=== PATIENT | female | born 1975 ===

== ENCOUNTER 2017-11-03 10:10 | Emergency (ER) | payer BC ==
[2017-11-03 10:27] VITALS: BP 104/61
[2017-11-03] MEDS ORDERED: Ketorolac INJ* 60 MG/2 ML VIAL IM ONE (10:44)
--- NOTE | 2017-12-08 21:22 | UC ---
Hand/Wrist HPI - HPI Summary HPI Summary: 3 weeks of numbness and tingling in right hand and fingers---seen pcp rx a splint and NSAIDS but not much better-- - History Of Current Complaint Chief Complaint: UCUpperExtremity Stated Complaint: ARM PAIN Time Seen by Provider: 11/03/17 10:32 Hx Obtained From: Patient Hx Last Menstrual Period: November 2016 ?: No Onset/Duration: Gradual Onset, Lasting Weeks - 3, Still Present Severity Initially: Moderate Severity Currently: Moderate Character Of Pain: Aching, Throbbing Aggravating Factor(s): Movement Alleviating Factor(s): Nothing Associated Signs And Symptoms: Positive: Numbness/Tingling Related History: Dominant Hand Right - Allergies/Home Medications Allergies/Adverse Reactions: Allergies Allergy/AdvReac Type Severity Reaction Status Date / Time hydromorphone Allergy Intermediate vomittinng Verified 11/03/17 10:27 Home Medications: Home Medications Pantoprazole Sodium [Protonix] 40 mg PO DAILY 11/03/17 [History Confirmed ] Venlafaxine EXT RELEASE CAP* [Effexor Xr CAP*] 225 mg PO DAILY 11/03/17 [ History Confirmed 11/03/17] PMH/Surg Hx/FS Hx/Imm Hx Previously Healthy: No GI/ History: Gastroesophageal Reflux Psychological History: Depression - Surgical History Surgical History: None Surgery Procedure, Year, and Place: tubal ligation november 2016. D&C 2006. adenoids 1978 - Family History Known Family History: Positive: None - Social History Occupation: Employed Full-time Lives: With Family Alcohol Use: Rare Substance Use Type: None Smoking Status (MU): Former Smoker Length of Time of Smoking/Using Tobacco: 10 When Did the Patient Quit Smoking/Using Tobacco: 4years Review of Systems Constitutional: Negative Skin: Negative Eyes: Negative ENT: Negative Respiratory: Negative Cardiovascular: Negative Gastrointestinal: Negative Genitourinary: Negative Motor: Negative Neurovascular: Negative Musculoskeletal: Arthralgia, Other: - numbness and tinglingright hand Neurological: Negative Psychological: Negative Is Patient Immunocompromised?: No All Other Systems Reviewed And Are Negative: Yes Physical Exam Triage Information Reviewed: Yes Appearance: Well-Appearing, No Pain Distress, Well-Nourished Vital Signs: Initial Vital Signs Temp 98.1 F 11/03/17 10:21 Pulse 87 11/03/17 10:21 Resp 18 11/03/17 10:21 BP 104/61 11/03/17 10:21 Pulse Ox 100 11/03/17 10:21 Vital Signs Reviewed: Yes Eye Exam: Normal Eyes: Positive: Conjunctiva Clear ENT Exam: Normal ENT: Positive: Normal ENT inspection, Hearing grossly normal. Negative: Muffled voice, Hoarse voice, Dental tenderness Dental Exam: Normal Neck exam: Normal Neck: Positive: Supple, Nontender, No Lymphadenopathy Respiratory Exam: Normal Respiratory: Positive: Chest non-tender, No respiratory distress, No accessory muscle use Cardiovascular Exam: Normal Cardiovascular: Positive: RRR, Pulses Normal, Brisk Capillary Refill Musculoskeletal Exam: Normal Musculoskeletal: Positive: Strength Intact, ROM Intact, No Edema Neurological Exam: Normal Neurological: Positive: Alert, Muscle Tone Normal Psychological Exam: Normal Skin Exam: Normal Hand/Wrist Course/Dx - Course Course Of Treatment: cockup splint, pain control, follow with primary care doctor on Monday - Differential Dx/Diagnosis Provider Diagnoses: Parasthesia right hand Discharge - Sign-Out/Discharge Documenting (check all that apply): Discharge/Admit/Transfer - Discharge Plan Condition: Stable Disposition: HOME Prescriptions: Hydrocodone/Acetaminophen [Hydrocodone-Acetamin 5-325 mg] 1 each PO Q6H PRN #12 tablet MDD 4 PRN Reason: pain Ibuprofen TAB* [Motrin TAB* 600 MG] 600 mg PO Q6H PRN #30 tab PRN Reason: Pain Patient Education Materials: Paresthesia (ED) Referrals: Deon Mart MD [Medical Doctor] - Additional Instructions: Follow with your primary care doctor in [place] on Monday - Billing Disposition and Condition Condition: STABLE Disposition: HOME
== END 2017-11-03 11:08 | disposition home or self-care (01) ==
LOC: UCEAST 10:10
DX: R20.2 Paresthesia of skin (principal); K21.9 Gastro-esophageal reflux disease without esophagitis; F32.9 Major depressive disorder, single episode, unspecified; Z88.5 Allergy status to narcotic agent; Z87.891 Personal history of nicotine dependence
CPT/HCPCS: 96372; 99202; G0463; J1885